=== PATIENT | female | born 1985 | race Two or more races ===

== ENCOUNTER 2016-11-14 18:27 | Emergency (ER) | payer BC ==
[~2016-11-14] VITALS: Ht 154.9 cm; Wt 58.0 kg
== END 2016-11-14 19:55 | disposition home or self-care (01) ==
LOC: CFTX 18:27 → CED 18:27 → CFTX 19:54
DX: J01.10 Acute frontal sinusitis, unspecified (principal); J01.00 Acute maxillary sinusitis, unspecified; F17.200 Nicotine dependence, unspecified, uncomplicated; Z98.890 Other specified postprocedural states
CPT/HCPCS: 99283